=== PATIENT | female | born 2000 | race African-American/Black ===

== ENCOUNTER 2023-11-10 11:52 | Emergency (ER) | payer BC, MEDICAID ==
[~2023-11-10] VITALS: Ht 157.5 cm; Wt 73.0 kg
[2023-11-10 12:38] VITALS: BP 129/72; PULSE 78; RESP 16; TEMP 98.5; O2SAT 100
== END 2023-11-10 15:40 | disposition home or self-care (01) ==
LOC: ER 11:52
DX: N63.20 Unspecified lump in the left breast, unspecified quadrant (principal); J45.909 Unspecified asthma, uncomplicated
CPT/HCPCS: 99281

== ENCOUNTER 2024-08-08 19:19 | Emergency (ER) | payer BC, MEDICAID ==
[~2024-08-08] VITALS: Ht 162.6 cm; Wt 75.0 kg
[2024-08-08 19:22] VITALS: O2SAT 96
[2024-08-08 19:37] VITALS: BP 123/66; PULSE 97; RESP 16; TEMP 36.8; O2SAT 100
[2024-08-08] MEDS ORDERED: IBUPROFEN 600MG TABLET PO ONE (22:30)
== END 2024-08-08 23:31 | disposition left against medical advice (07) ==
LOC: ER 19:29
DX: J02.9 Acute pharyngitis, unspecified (principal); J45.909 Unspecified asthma, uncomplicated
CPT/HCPCS: 99281